=== PATIENT | female | born 1945 | race Caucasian/White ===

== ENCOUNTER → 2018-06-21 12:06 | Outpatient (CLI) | payer MEDICARE, SELFPAY ==
[2018-06-21 12:23] LABS: Basophils % 0.6 % (0.1-2.0); Eosinophils # 0.1 K/mm3 (0.0-0.4); Eosinophils % 1.1 % (0.1-12.0); Hematocrit 44.4 % (37.0-47.0); Hemoglobin 14.2 g/dL (12.2-16.2); Lymphocytes # 1.8 K/mm3 (0.7-4.5); Lymphocytes % 24.1 % (10-50); Mean Corpuscular HGB Conc 31.9 g/dL (31.8-35.4); Mean Corpuscular Volume 87.9 fl (81-99); Mean Platelet Volume 8.3 fl (7.4-10.4); Monocytes # 0.5 K/mm3 (0.1-1.0); Monocytes % 6.3 % (1.7-9.3); Neutrophils # 5.2 K/mm3 (1.8-7.8); Neutrophils % 67.8 % (37.0-80.0); Platelet Count 222 K/mm3 (142-424); Red Blood Count 5.05 M/mm3 (4.20-5.40); Red Cell Distribution Width 13.8 % (11.5-17.5); White Blood Count 7.6 K/mm3 (4.8-10.8)
--- NOTE | 2018-06-21 12:23 | XR_ITS ---
XR chest 2V HISTORY: Dyspnea on exertion, congestion ITS.REASON: ROCA ORDERING PHYSICIAN: Patricio Jones MD PATIENT AGE: 72 years COMPARISON: None FINDINGS: Unremarkable cardiovascular structures. There are no previous exams available for comparison. There is some patchy density noted in the right mid and lower lung zone and could be related to either scarring, infiltrate, or atelectasis. The remaining lungs are clear. There are degenerative changes in the thoracic spine. IMPRESSION: Nonspecific patchy density in the right mid and lower lung zone which could be related to fibrosis, atelectasis, or infiltrate or combination there. Consider follow-up to confirm stability or resolution
[2018-06-21 13:32] LABS: Hemoglobin A1C 6.1 % (0.0-7.0)
[2018-06-21 14:13] LABS: Alanine Aminotransferase 40 U/L (12-78); Albumin Level 3.7 gm/dL (3.4-5.0); Albumin/Globulin Ratio 0.9 (1.1-1.8); Alkaline Phosphatase 83 U/L (46-116); Anion Gap 14.2 mEq/L (5-15); Aspartate Amino Transferase 19 U/L (15-37); Bilirubin,Total 0.5 mg/dL (0.2-1.0); Blood Urea Nitrogen 20 mg/dL (7-18); Calcium 9.3 mg/dL (8.5-10.1); Carbon Dioxide 27 mmol/L (21.0-32.0); Chloride 104 mmol/L (98-107); Chol/HDL Ratio 2.8 (1-3.5); Cholesterol 165 mg/dL (140-200); Creatinine,Serum 0.64 mg/dL (0.55-1.02); Estimated Glomerular Filt Rate 91 ml/min (>60); GFR (African American) 110 ML/MIN (>60); Globulin 3.9 gm/dl (1.3-3.2); Glucose 100 mg/dL (74-106); HDL Cholesterol 58 mg/dL (29-89); LDL Cholesterol 92 mg/dL (0-130); Potassium 4.2 mmoL/L (3.5-5.1); Sodium 141 mmol/L (136-145); Total Protein,Serum 7.6 gm/dL (6.4-8.2); Triglycerides 76 mg/dL (30-200); VLDL Cholesterol 15 mg/dL (0-40)
[2018-06-23 17:09] LABS: Angiotensin Converting Enzyme 15 U/L (14-82)
== END ==
PROVIDERS: PCP Internal Medicine Adolescent Medicine; Visit Provider Internal Medicine Adolescent Medicine
DX: Z00.00 Encounter for general adult medical examination without abnormal findings (principal); R06.09 Other forms of dyspnea; J06.9 Acute upper respiratory infection, unspecified; Z79.899 Other long term (current) drug therapy
CPT/HCPCS: 36415; 71046; 80053; 80061; 82164; 83036; 85025

== ENCOUNTER → 2018-06-26 12:33 | Outpatient (CLI) | payer MEDICARE, SELFPAY | PROVIDERS: PCP Internal Medicine Adolescent Medicine; Visit Provider Internal Medicine Adolescent Medicine | DX: R06.09 Other forms of dyspnea (principal) | CPT/HCPCS: 94060; 94726; 94729 ==

== ENCOUNTER → 2021-04-24 18:02 | Outpatient (CLI) | payer MEDICARE, SELFPAY ==
[2021-04-24 19:19] LABS: Basophils # 0.1 K/mm3 (0-0.2); Basophils % 0.6 % (0.1-2.0); Eosinophils # 0.3 K/mm3 (0.0-0.4); Eosinophils % 2.7 % (0.1-12.0); Hematocrit 41.6 % (37.0-47.0); Hemoglobin 13.6 g/dL (12.2-16.2); Mean Corpuscular HGB Conc 32.7 g/dL (31.8-35.4); Mean Corpuscular Hemoglobin 28.5 pg (27.0-31.2); Mean Corpuscular Volume 87.3 fl (81-99); Mean Platelet Volume 9.7 fl (7.4-10.4); Monocytes # 0.8 K/mm3 (0.1-1.0); Monocytes % 6.5 % (1.7-9.3); Neutrophils # 8.7 K/mm3 (1.8-7.8); Neutrophils % 73.1 % (37.0-80.0); Platelet Count 249 K/mm3 (142-424); Red Blood Count 4.77 M/mm3 (4.20-5.40); Red Cell Distribution Width 13.7 % (11.5-17.5); White Blood Count 11.9 K/mm3 (4.8-10.8)
[2021-04-24 19:28] LABS: Hemoglobin A1C 5.8 % (4.0-6.0)
[2021-04-24 19:29] LABS: Alanine Aminotransferase 22 U/L (12-78); Albumin Level 3.9 g/dl (3.5-5.0); Albumin/Globulin Ratio 1.3 (1.1-1.8); Alkaline Phosphatase 105 U/L (38-126); Anion Gap 12.9 mEq/L (5-15); Aspartate Amino Transferase 29 U/L (14-36); Bilirubin,Total 0.4 mg/dl (0.2-1.3); Blood Urea Nitrogen 22 mg/dl (7-17); Calcium 9.3 mg/dl (8.4-10.2); Carbon Dioxide 27 mmol/L (22.0-30.0); Chloride 103 mmol/L (98-107); Chol/HDL Ratio 2.9 (1-3.5); Cholesterol 163 mg/dl (140-200); Estimated Glomerular Filt Rate 120 ml/min (>60); GFR (African American) 145 ML/MIN (>60); Globulin 2.9 g/dL (1.3-3.2); Glucose 93 mg/dl (74-100); HDL Cholesterol 56 mg/dl (40-60); Potassium 3.9 mmoL/L (3.5-5.1); Sodium 139 mmol/L (136-145); Total Protein,Serum 6.8 g/dl (6.3-8.2); Triglycerides 105 mg/dl (30-150); VLDL Cholesterol 21 mg/dL (0-40)
[2021-04-24 19:40] LABS: C-Reactive Protein 9.4 mg/L (0-4); Direct LDL Cholesterol 86.43 mg/dL (100-129)
[2021-04-24 19:47] LABS: T4 (Thyroxine) 10.3 ug/dl (5.53-11.0)
[2021-04-24 19:58] LABS: 25-OH Vitamin D, Total 18.7 ng/mL (30-100)
[2021-04-24 20:00] LABS: Thyroid Stimulating Hormone 1.35 uIU/mL (0.465-4.68)
[2021-04-24 20:11] LABS: Erythrocyte Sedimentation Rate 16 mm/hr (0-30)
[2021-04-26 09:09] LABS: RA Latex Turbid. <10.0 IU/mL (<14.0)
[2021-04-27 02:10] LABS: Anti-Centromere B Antibodies <0.2 AI (0.0-0.9); Anti-DNA (DS) Ab Qn <1 IU/mL (0-9); Anti-Jo-1 <0.2 AI (0.0-0.9); Anti-Smith Antibody <0.2 AI (0.0-0.9); Antichromatin Antibodies <0.2 AI (0.0-0.9); Antiscleroderma-70 Antibodies <0.2 AI (0.0-0.9); RNP Antibodies <0.2 AI (0.0-0.9); Sjogren's Anti-SS-A <0.2 AI (0.0-0.9); Sjogren's Anti-SS-B <0.2 AI (0.0-0.9)
[2021-04-29] LABS: Anti-Cyclic Citrullinated Pept 5 units (0-19)
== END ==
PROVIDERS: Nurse Practitioner Family; Visit Provider Nurse Practitioner Family
DX: M25.50 Pain in unspecified joint (principal); R53.83 Other fatigue; R60.9 Edema, unspecified; Z00.00 Encounter for general adult medical examination without abnormal findings; E55.9 Vitamin D deficiency, unspecified; Z79.899 Other long term (current) drug therapy
CPT/HCPCS: 80053; 80061; 82306; 83036; 84436; 84443; 85025; 85651; 86140; 86200; 86225; 86235; 86431

== ENCOUNTER → 2021-05-06 08:38 | Outpatient (CLI) | payer MEDICARE, SELFPAY | PROVIDERS: PCP Nurse Practitioner Family; Visit Provider Nurse Practitioner Family | DX: M79.18 Myalgia, other site (principal) ==

== ENCOUNTER 2021-06-01 10:00 | Outpatient (RCR) | payer MEDICARE, SELFPAY | END 2021-06-01 10:05 | disposition home or self-care (01) | LOC: PT 10:00 | PROVIDERS: PCP Nurse Practitioner Family; Visit Provider Nurse Practitioner Family | DX: M25.551 Pain in right hip (principal) | CPT/HCPCS: 97110; 97163; 97535 ==

== ENCOUNTER 2025-01-12 10:47 | Emergency (ER) | payer MEDICARE, SELFPAY ==
[2025-01-12] VITALS (22 sets, daily range): BP systolic 142–222; BP diastolic 68–111; PULSE 67–101; RESP 12–33; TEMP 36.8; O2SAT 92–98; BMI 42.9
--- NOTE | 2025-01-12 11:01 | ECG_ITS ---
APPROVED REPORT Exam: Resting ECG HR:96 bpm ECG Measurements Heart Rate 96 AXES MO 191 P 48 QRSd 144 QRS -49 QT 376 T 59 QTc 429 Conclusion Normal sinus rhythm Left axis Right bundle branch block No STEMI Electronically signed by : Waldo Corrigan, 01/12/2025 17:32:29
--- NOTE | 2025-01-12 11:19 | XR_ITS ---
PROCEDURE INFORMATION: Exam: XR Chest Exam date and time: 01/12/2025 11:35 AM Age: 79 years old Clinical indication: Shortness of breath and other: Eval for edema TECHNIQUE: Imaging protocol: Radiologic exam of the chest. Views: 1 view. COMPARISON: DX CXR2V XR chest 2V 06/21/2018 12:24 PM FINDINGS: Lungs: Opacities in both bases may represent atelectasis or pneumonia.. Pleural spaces: Mild to moderate left pleural effusion.. Heart/Mediastinum: Cardiomegaly and mild vascular prominence may represent interstitial edema.. Bones/joints: Stable IMPRESSION: 1. Opacities in both bases may represent atelectasis or pneumonia.. 2. Cardiomegaly and mild vascular prominence may represent interstitial edema.. 3. Mild to moderate left pleural effusion..
--- NOTE | 2025-01-12 11:30 | HMH.EDGENADL ---
Discharge Plan Disposition Patient Disposition: Home, Self-Care Condition: Good Prescriptions Prescriptions: No Action prednisone 20 mg tablet 20 mg PO BID 5 Days Qty: 10 0RF montelukast [Singulair] 10 mg tablet 10 mg PO DAILY Qty: 30 2RF fluticasone propionate [Flonase Allergy Relief] 50 mcg/actuation spray,suspension 1 spray INTRANASAL DAILY Qty: 16 2RF Rx Instructions: administer into each nostril loratadine [Allergy Relief (loratadine)] 10 mg tablet 10 mg PO DAILY Qty: 30 2RF tramadol 100 mg tablet 100 mg PO TID PRN (Reason: pain) Qty: 14 0RF Referrals Follow up/Referrals: Michelle Patterson APRN [Primary Care Provider, Medical] - See instructions Activity Restrictions/Add. Instructions Additional Instructions/Restrictions: Please expect a call from Urology on Tuesday or of this upcoming week. They will schedule an appointment to follow up in the outpatient clinic. Regarding your blood pressure, please keep a pressure log at home and follow up with your primary care doctor to discuss medication options moving forward. Clinical Impressions Clinical Impression: Light headedness, Generalized weakness, Kidney lesion Print Language Print Language: Romansh Discharge ED Provider: Waldo Corrigan Adult HPI General Chief complaint: Weakness Stated complaint: weak, dizzy, not able to think right Time Seen by Provider: 01/12/25 11:08 Mode of Arrival: Wheelchair Source of Information: Patient and Relative Description of Symptoms (Recalled from ER Triage Doc. by RN): Reports increased weakness and dizziness that started this morning. Patient denies N/V/D or any pain at this time. History of Present Illness HPI narrative: This is an 79-year-old female patient, with no prior documented medical history, who is presented to the emergency department today for evaluation of multiple complaints. The patient states that she has not seen a doctor in numerous years and does not currently carry any medical diagnoses. She tells me that she has been seen in the past for stable pulmonary nodules but she is unable to characterize these further. The reason she is presenting today is because she woke up feeling generally unwell and weaker than usual. She states that when she was standing up out of bed this morning she was having transient lightheadedness that was quickly resolving, however throughout the morning hours every time she would stand up this lightheadedness was longer and longer lasting. She states that she has not had any cough, congestion, production of phlegm. No chest pain or shortness of breath. No abdominal pain. No nausea, vomiting, or diarrhea. She denies urinary symptoms. She is difficult to get a history from aside from the fact that she is feeling overall weak. Related Data Previous Rx's ?Medication ?Instructions ?Recorded fluticasone propionate 50 1 spray intranasal DAILY #16 grams 04/24/21 mcg/actuation nasal spray,suspension (Flonase Allergy Relief) loratadine 10 mg tablet (Allergy 10 mg PO DAILY #30 tabs 04/24/21 Relief (loratadine)) montelukast 10 mg tablet 10 mg PO DAILY #30 tabs 04/24/21 (Singulair) prednisone 20 mg tablet 20 mg PO BID 5 days #10 tabs 04/24/21 tramadol 100 mg tablet 100 mg PO TID PRN pain #14 tabs 05/14/21 Allergies Allergy/AdvReac Type Severity Reaction Status Date / Time No Known Allergies Allergy Verified 04/24/21 13:28 [facility] Disclaimer: The information contained in this section may have been updated after the patient was seen, as this information can be updated by other users. Social History Smoking Status: Never smoker alcohol intake: never substance use type: denies use current occupational status: retired Travel in the last 8 weeks?: None housing: house Have you lived/traveled outside US in past 30 days?: No Contact w/someone who lives/traveled outside US past 30 days?: No Exposure to someone with infectious disease in past 14 days?: No Do you have a fever (greater than 100.4 F or 38 C)?: No Have you tested positive for COVID-19?: No Exposed to someone with COVID-19 in past 14 days?: No Do you have a sore throat?: No Do you have a cough?: No Do you have any weakness?: No Do you have any diarrhea?: No Are you experiencing any unusual bleeding?: No Do you have any muscle aches/pain?: No Do you have any abdominal pain?: No Are you experiencing loss of taste or smell?: No Other Medical History Have you received the Pneumonia Vaccine: Yes ROS Obtained: Yes Systems reviewed as appropriate & no additional complaints except as documented Physical Exam General General appearance: other (See MDM) Respiratory Respiratory exam: Present other (See MDM) Cardiovascular Cardiovascular exam: Present other (See MDM) Neurological Exam Neurological exam: Present other (See MDM) Medical Decision Making Medical Records Medical records reviewed: Yes I reviewed the patient's medical records. Screening: Per USPSTF and CDC recommendations, given the prevalence of disease in our region, it is our hospital?s policy to screen for HIV and viral Hepatitis for all patients aged 18 and over and those with ongoing risk factors. Blas Inquiry Pt receiving controlled substance: No Blas was queried for this patient: No Vital Signs: 01/12/25 11:00 01/12/25 11:04 01/12/25 11:04 Temperature 98.2 F Temperature Source Oral Pulse Rate 96 H 101 H Pulse Rate [Orthostatic Lying] Pulse Rate [Orthostatic Sitting] Pulse Rate [Orthostatic Standing] Pulse Rate [Radial] 99 H Respiratory Rate 26 H 18 22 Blood Pressure 198/69 H 190/68 H Blood Pressure [Orthostatic Lying] Blood Pressure [Orthostatic Sitting] Blood Pressure [Orthostatic Standing] Blood Pressure [Right Arm] 198/69 H Blood Pressure Mean Blood Pressure Mean [Right Arm] 112 Blood Pressure Source [Right Arm] Automatic Cuff Blood Pressure Position [Right Arm] Sitting 02 Sat by Pulse Oximetry 95 95 97 Oxygen Delivery Method Room Air 01/12/25 11:19 01/12/25 11:22 01/12/25 12:00 Temperature Temperature Source Pulse Rate 94 H 92 H Pulse Rate [Orthostatic Lying] 94 H Pulse Rate [Orthostatic Sitting] 94 H Pulse Rate [Orthostatic Standing] 100 H Pulse Rate [Radial] Respiratory Rate 25 H 26 H Blood Pressure 183/90 H 186/82 H Blood Pressure [Orthostatic Lying] 183/90 H Blood Pressure [Orthostatic Sitting] 203/90 H Blood Pressure [Orthostatic Standing] 222/111 H Blood Pressure [Right Arm] Blood Pressure Mean Blood Pressure Mean [Right Arm] Blood Pressure Source [Right Arm] Blood Pressure Position [Right Arm] 02 Sat by Pulse Oximetry 95 93 L Oxygen Delivery Method 01/12/25 12:12 01/12/25 12:25 01/12/25 12:30 Temperature Temperature Source Pulse Rate 92 H 94 H 93 H Pulse Rate [Orthostatic Lying] Pulse Rate [Orthostatic Sitting] Pulse Rate [Orthostatic Standing] Pulse Rate [Radial] Respiratory Rate 23 15 26 H Blood Pressure 183/82 H 210/100 H 174/94 H Blood Pressure [Orthostatic Lying] Blood Pressure [Orthostatic Sitting] Blood Pressure [Orthostatic Standing] Blood Pressure [Right Arm] Blood Pressure Mean Blood Pressure Mean [Right Arm] Blood Pressure Source [Right Arm] Blood Pressure Position [Right Arm] 02 Sat by Pulse Oximetry 93 L 93 L 95 Oxygen Delivery Method 01/12/25 12:45 01/12/25 13:00 01/12/25 13:31 Temperature Temperature Source Pulse Rate 92 H 80 85 Pulse Rate [Orthostatic Lying] Pulse Rate [Orthostatic Sitting] Pulse Rate [Orthostatic Standing] Pulse Rate [Radial] Respiratory Rate 27 H 20 28 H Blood Pressure 181/90 H 192/105 H 192/103 H Blood Pressure [Orthostatic Lying] Blood Pressure [Orthostatic Sitting] Blood Pressure [Orthostatic Standing] Blood Pressure [Right Arm] Blood Pressure Mean Blood Pressure Mean [Right Arm] Blood Pressure Source [Right Arm] Blood Pressure Position [Right Arm] 02 Sat by Pulse Oximetry 94 L 94 L 95 Oxygen Delivery Method 01/12/25 13:46 01/12/25 14:00 01/12/25 14:15 Temperature Temperature Source Pulse Rate 72 72 71 Pulse Rate [Orthostatic Lying] Pulse Rate [Orthostatic Sitting] Pulse Rate [Orthostatic Standing] Pulse Rate [Radial] Respiratory Rate 23 22 22 Blood Pressure 180/89 H 176/89 H 172/86 H Blood Pressure [Orthostatic Lying] Blood Pressure [Orthostatic Sitting] Blood Pressure [Orthostatic Standing] Blood Pressure [Right Arm] Blood Pressure Mean 118 114 Blood Pressure Mean [Right Arm] Blood Pressure Source [Right Arm] Blood Pressure Position [Right Arm] 02 Sat by Pulse Oximetry 98 96 96 Oxygen Delivery Method 01/12/25 14:30 01/12/25 14:50 01/12/25 15:00 Temperature Temperature Source Pulse Rate 67 75 Pulse Rate [Orthostatic Lying] Pulse Rate [Orthostatic Sitting] Pulse Rate [Orthostatic Standing] Pulse Rate [Radial] Respiratory Rate 22 33 H 24 Blood Pressure 161/82 H 188/95 H 169/84 H Blood Pressure [Orthostatic Lying] Blood Pressure [Orthostatic Sitting] Blood Pressure [Orthostatic Standing] Blood Pressure [Right Arm] Blood Pressure Mean 108 Blood Pressure Mean [Right Arm] Blood Pressure Source [Right Arm] Blood Pressure Position [Right Arm] 02 Sat by Pulse Oximetry 95 92 L Oxygen Delivery Method 01/12/25 15:16 01/12/25 15:30 Temperature Temperature Source Pulse Rate 67 71 Pulse Rate [Orthostatic Lying] Pulse Rate [Orthostatic Sitting] Pulse Rate [Orthostatic Standing] Pulse Rate [Radial] Respiratory Rate 18 14 Blood Pressure 151/80 H 142/71 H Blood Pressure [Orthostatic Lying] Blood Pressure [Orthostatic Sitting] Blood Pressure [Orthostatic Standing] Blood Pressure [Right Arm] Blood Pressure Mean Blood Pressure Mean [Right Arm] Blood Pressure Source [Right Arm] Blood Pressure Position [Right Arm] 02 Sat by Pulse Oximetry 93 L 92 L Oxygen Delivery Method Lab Data Lab Results 01/12/25 10:54: Urine Color Yellow, Urine Appearance Clear, Urine pH 7.5, Ur Specific [place] 1.020, Urine Protein Negative, Urine Glucose (UA) Negative, Urine Ketones Negative, Urine Blood 1+ A, Urine Nitrate Negative, Urine Bilirubin Negative, Urine Urobilinogen 1.0, Ur Leukocyte Esterase Negative, Urine RBC 5-10, Urine WBC Occasional, Ur Squamous Epith Cells Occasional, Urine Bacteria None 01/12/25 11:45: WBC 10.0, RBC 5.29, Hgb 15.1, Hct 46.8, MCV 88.5, MCH 28.5, MCHC 32.3, RDW 13.5, Plt Count 227, MPV 10.2, Neut % (Auto) 82.2 H, Lymph % (Auto) 9.1 L, Mcd[place] % (Auto) 6.6, Eos % (Auto) 1.0, Baso % (Auto) 0.5, Neut # (Auto) 8.2 H, Lymph # (Auto) 0.9, [place]cd[place] # (Auto) 0.7, Eos # (Auto) 0.1, Baso # (Auto) 0.1, Sodium 139, Potassium 4.3, Chloride 110 H, Carbon Dioxide 23, Anion Gap 10.3, BUN 18 H, Creatinine 0.50 L, Estimated Creat Clear 38, Estimated GFR 118, Est GFR ( Amer) 143, Glucose 143 H, Calcium 9.4, Total Bilirubin 1.0, AST 35, ALT 21, Alkaline Phosphatase 118, Total Creatine Kinase 190 H, Troponin I < 0.01, NT-Pro-B Natriuret Pep 210, Total Protein 7.7, Albumin 4.5, Globulin 3.2, Albumin/Globulin Ratio 1.4, Lipase 86, HCV Ab KEENAN w/Rflx PCR Qn Negative, HIV Ag/Ab Combo Qual Negative 01/12/25 11:45 01/12/25 11:45 Orders (Tests/Meds): ED MEDICATIONS Discontinued Medications Generic Name Dose Route Start Last Admin Trade Name Freq PRN Reason Stop Dose Admin Carvedilol 25 mg 01/12/25 13:31 01/12/25 13:56 Carvedilol 25mg Tablet PO 01/12/25 13:32 25 mg ONCE ONE Administration Iopamidol 80 ml 01/12/25 13:32 01/12/25 13:33 Iopamidol-370 (76%);100ml Bottle IV 01/12/25 13:33 80 ml ONCE ONE Administration Iopamidol 75 ml 01/12/25 15:42 01/12/25 15:42 Iopamidol-370 (76%);100ml Bottle IV 01/12/25 15:43 75 ml ONCE ONE Administration Sodium Chloride 10 ml 01/12/25 13:32 01/12/25 13:33 Sodium Chloride 0.9% 10ml Syr (Rad Only) IV 01/12/25 13:33 10 ml ONCE ONE Administration Sodium Chloride 50 ml 01/12/25 13:32 01/12/25 13:33 0.9 % Sodium Chloride 50 Ml Vial IV 01/12/25 13:33 50 ml ONCE ONE Administration Sodium Chloride 10 ml 01/12/25 15:42 01/12/25 15:42 Sodium Chloride 0.9% 10ml Syr (Rad Only) IV 01/12/25 15:43 10 ml ONCE ONE Administration ORDERS Category Date Time Status CT abdomen pelvis w con Stat Cat Scan 01/12/25 14:[address] angio chest PE protocol Stat Cat Scan 01/12/25 13:10 Completed CXR --portable [XR chest portable] Stat Exams 01/12/25 11:19 Completed POCUS Point of Care (ER Only) Stat Exams 01/12/25 11:40 Completed BNP [NT Pro Brain Natriuretic Pep.] Stat Lab 01/12/25 11:45 Completed CBC w/Auto Diff [Complete Blood Count Auto Diff] Stat Lab 01/12/25 11:45 Completed CK [Creatine Kinase] Stat Lab 01/12/25 11:45 Completed CMP [Comprehensive Metabolic Panel] Stat Lab 01/12/25 11:45 Completed HIV Combo Stat Lab 01/12/25 11:45 Completed Hepatitis C Ab Qual. W/ RFX Stat Lab 01/12/25 11:45 Completed Lipase Stat Lab 01/12/25 11:45 Completed Troponin I Q3H Lab 01/12/25 14:30 Ordered Troponin I Q3H Lab 01/12/25 17:30 Ordered Troponin I Stat Lab 01/12/25 11:45 Completed Urinalysis and Microscopic Stat Lab 01/12/25 10:54 Completed ECG Data Tracing #1: I reviewed this ECG and interpreted as documented below: EKG personally interpreted by me demonstrates normal sinus rhythm with a rate of 96 bpm, left axis, no MD prolongation, wide QRS with right bundle branch block morphology, no QTc prolongation. No ST elevation or depression. No overt signs of ischemia or arrhythmia. Medical Decision Narrative: In summary, this is an 79-year-old female patient who is presented to the emergency department today for evaluation of weakness and lightheadedness with standing onset this morning. The patient does not have any significant comorbidities that would complicate her medical management or care, however she is also not seen a physician in numerous years so she likely does have some undiagnosed comorbidities. On initial evaluation the patient she was nontoxic and in no acute distress. She was hemodynamically stable but significantly hypertensive with a systolic blood pressure of 190 and a diastolic greater than 105. She had a normal heart rate of around 90. She is overall neurologically intact and appropriately conversational with a GCS of 15. Heart and lungs are clear to auscultation bilaterally. She has no abdominal tenderness to palpation. She does have significant bilateral lower extremity pitting edema. Differential diagnosis includes ACS/AZ, anemia, congestive heart failure, rhabdomyolysis, urinary tract infection, pulmonary embolism, among others. Workup was initiated with a hematologic labs and urinalysis as well as an EKG and a chest x-ray. Labs were personally turbid by me and demonstrate no evidence of leukocytosis, no actionable anemia, no significant electrolyte derangement or evidence of acute kidney injury. BNP is 210 and troponin is less than 0.01. In the absence of chest pain I do not feel that she needs a second troponin at this time. Additionally, with her BNP being low I do not feel that this is consistent with overt heart failure. Urine studies demonstrate no evidence of urinary tract infection. We did obtain orthostatic vitals on the patient given that she was reporting lightheadedness with standing. She had no evidence of orthostasis and actually had an increase in her blood pressure with standing. Given that her pressure has been sustained greater than 190 systolic and her heart rate is in the 90s, I did administer 25 mg of carvedilol to see if this would improve her symptoms and her blood pressure. Chest x-ray was personally interpreted by me and demonstrates opacities in the bilateral lower lobes which I feel are very nonspecific. She is not having any symptoms that would be consistent with pneumonia. Given the appearance of this I did perform a bedside echo which showed a preserved ejection fraction. I did not appreciate any pleural effusions or evidence of pulmonary edema overtly. I did decide to proceed with a CT pulmonary embolism study to ensure that she did not have a pulmonary embolism and to also better characterize her lungs. CT PE was personally interpreted by me and demonstrates no evidence of saddle pulmonary embolus. Official radiology read is in agreement and states that there is no abnormalities in the lungs and no evidence of pulmonary emboli however, they did note that there is multiple healing rib fractures in addition to a 3.6 cm mass in the posterior aspect of the kidney concerning for renal cell carcinoma. I did discuss this case with urology at the [facility]. They state that this is something that they would recommend outpatient follow-up on. They have requested that we obtain a CT scan of the abdomen and pelvis with IV contrast to expedite her workup in the outpatient setting. CT scan of the abdomen and pelvis was obtained and demonstrated a 4.6 x 3.6 mass in the posterior right kidney with a calcified periphery, which again is concerning for renal cell carcinoma. Aside from this there is no obvious metastasis noted on the CT read interpretation. I have informed the patient of all of her findings and our plan moving forward. Urology will be in contact with the patient on Tuesday or Tuesday of this upcoming week to schedule follow-up in their clinic. Regarding the patient's lightheadedness and weakness, per symptoms have resolved since arrival to the emergency department. I have asked her to follow-up with her primary care physician regarding her blood pressure. In the meantime I have asked that she keep a blood pressure log. At this time all questions have been answered and all parties are agreeable with the decision to discharge home Critical Care Critical Care Time Critical Care Time: No
[2025-01-12 12:06] LABS: Hematocrit 46.8 % (37.0-47.0); Hemoglobin 15.1 g/dL (12.2-16.2); Immature Granulocytes % 0.6 %; Mean Corpuscular HGB Conc 32.3 g/dL (31.8-35.4); Mean Corpuscular Hemoglobin 28.5 pg (27.0-31.2); Mean Corpuscular Volume 88.5 fl (81-99); Nucleated Red Blood Cells % 0 %; Platelet Count 227 K/mm3 (142-424); Red Blood Count 5.29 M/mm3 (4.20-5.40); Red Cell Distribution Width-SD 43.9 fL; White Blood Count 10.0 K/mm3 (4.8-10.8)
[2025-01-12 12:08] LABS: Albumin Level 4.5 g/dl (3.5-5.0); Chloride 110 mmol/L (98-107)
[2025-01-12 12:09] LABS: Potassium 4.3 mmoL/L (3.5-5.1); Sodium 139 mmol/L (136-145)
[2025-01-12 12:11] LABS: Alanine Aminotransferase 21 U/L (12-78); Anion Gap 10.3 mEq/L (5-15); Aspartate Amino Transferase 35 U/L (14-36); Blood Urea Nitrogen 18 mg/dl (7-17); Carbon Dioxide 23 mmol/L (22.0-30.0); Creatinine Clearance Estimated 38 mL/min (50-200); Creatinine,Serum 0.50 mg/dl (0.52-1.04); Estimated Glomerular Filt Rate 118 ml/min (>60); GFR (African American) 143 ML/MIN (>60)
[2025-01-12 12:12] LABS: Albumin/Globulin Ratio 1.4 (1.1-1.8); Alkaline Phosphatase 118 U/L (38-126); Bilirubin,Total 1.0 mg/dl (0.2-1.3); Calcium 9.4 mg/dl (8.4-10.2); Creatine Kinase 190 U/L (30-135); Globulin 3.2 g/dL (1.3-3.2); Glucose 143 mg/dl (74-100); Lipase 86 U/L (23-300); Total Protein,Serum 7.7 g/dl (6.3-8.2)
[2025-01-12 12:21] LABS: Microscopic, Urine URINE MICROSCOPIC (MICROSCOPIC)
[2025-01-12 12:21] LABS: NT Pro Brain Natriuretic Pep. 210 pg/mL (0-450)
[2025-01-12 12:27] LABS: Bilirubin,Urine Negative (Negative); Color,Urine YELLOW (Yellow); Glucose,Urine (UA) Negative (Negative); Ketones,Urine Negative (Negative); Leukocyte Esterase,Urine Negative (Negative); PH,Urine 7.5 (5.0-8.5); Protein,Urine Negative (Negative); Specific Gravity, Urine 1.020 (1.005-1.030); Urobilinogen,Urine 1.0 EU/dl (0.2)
[2025-01-12 12:28] LABS: Troponin I < 0.01 ng/ml (0.00-0.034)
[2025-01-12 12:36] LABS: Squamous Epithelial Cell,Urine Occasional #/hpf (0-5); WBC,Urine Occasional #/hpf (0-3)
--- NOTE | 2025-01-12 13:10 | CT_ITS ---
PROCEDURE INFORMATION: Exam: CTA Chest With Contrast Exam date and time: 01/12/2025 1:25 PM Age: 79 years old Clinical indication: Shortness of breath; Additional info: Dyspnea TECHNIQUE: Imaging protocol: Computed tomographic angiography of the chest with contrast. Exam focused on the arteries. 3D rendering (Not supervised by radiologist): MIP and/or 3D reconstructed images were created by the technologist. Radiation optimization: All CT scans at this facility use at least one of these dose optimization techniques: automated exposure control; mA and/or kV adjustment per patient size (includes targeted exams where dose is matched to clinical indication); or iterative reconstruction. Contrast material: ISOVUE; Contrast volume: 80 ml; Contrast route: INTRAVENOUS (IV); COMPARISON: CR XR CHEST PORTABLE 01/12/2025 11:35 AM FINDINGS: Pulmonary arteries: Normal. No pulmonary emboli. Aorta: Unremarkable. No aortic aneurysm. No aortic dissection. Lungs: 7.8 pulmonary nodule in the right middle lobe series 5, image 56. . 7.2 mm pulmonary nodule right lower lobe series 5, image 63 Pleural spaces: Unremarkable. No pneumothorax. No pleural effusion. Heart: There is calcification of the aortic valve annulus. There is calcification of the mitral valve annulus. Coronary arteries: Coronary artery calcifications may indicate coronary artery disease. Lymph nodes: Unremarkable. No enlarged lymph nodes. Kidneys: 3.6 cm mass in the posterior aspect of the right kidney 61 Hounsfield units. It has a calcified border. (series 5, image 125 -133). . Bones/joints: Healing left anterior 5 6 7th and 8th rib fractures. Soft tissues: Unremarkable. Other findings: Multiple calcified granulomas consistent with prior granulomatous disease. IMPRESSION: 1. Healing left anterior 5 6 7th and 8th rib fractures. 2. 7.8 pulmonary nodule in the right middle lobe series 5, image 56. For patients at low risk (minimal or absent history of smoking and of other known risk factors), recommend CT Chest at 6-12 months, then consider CT Chest at 18-24 months. For patients at high risk (history of smoking or of other known risk factors), recommend CT Chest at 6-12 months, then [address] Chest at 18-24 months. (Reference: Danilo) References: Danilo Mcgregor et al. Guidelines for Management of Incidental Pulmonary Nodules Detected on CT Images: From the Fleischner Society 2017. Radiology. 2017;284(1):228-243. 3. 3.6 cm mass in the posterior aspect of the right kidney 61 Hounsfield units. It has a calcified border. (series 5, image 125 -133). . COMMENTS: Consistent with the [employer] [place]'s Incidental Findings Committee white paper (J Am Armando Radiol 2018): Any incidental renal lesion less than 1 cm or classified as too small to characterize, or any incidental cystic renal lesion characterized as simple-appearing, is likely benign. No follow-up imaging is recommended for these lesions per consensus recommendations based on imaging criteria. THIS REPORT CONTAINS FINDINGS THAT MAY BE CRITICAL TO PATIENT CARE. The findings were verbally communicated via telephone conference with ANDREW PATEL at 1:55 PM EDT on 01/12/2025. The findings were acknowledged and understood.
[2025-01-12 13:14] LABS: Hepatitis C Ab Qual. W/ RFX NEGATIVE (Negative)
[2025-01-12] MEDS: SODIUM CHLORIDE 0.9% 10ML SYR (RAD ONLY) 10 ML IV ×2 (13:33→15:42)
[2025-01-12] MEDS: 0.9 % SODIUM CHLORIDE 50 ML VIAL IV (13:33)
[2025-01-12] MEDS: IOPAMIDOL-370 (76%);100ML BOTTLE 80 ML IV (13:33)
[2025-01-12] MEDS: CARVEDILOL 25MG TABLET 25 MG PO (13:56)
--- NOTE | 2025-01-12 14:01 | PC.NURSE ---
[facility] called for a consult and possible transfer
--- NOTE | 2025-01-12 14:49 | CT_ITS ---
PROCEDURE INFORMATION: Exam: CT Abdomen And Pelvis With Contrast Exam date and time: 01/12/2025 3:42 PM Age: 79 years old Clinical indication: Screening exam; Other: Eval for mets TECHNIQUE: Imaging protocol: Computed tomography of the abdomen and pelvis with contrast. Radiation optimization: All CT scans at this facility use at least one of these dose optimization techniques: automated exposure control; mA and/or kV adjustment per patient size (includes targeted exams where dose is matched to clinical indication); or iterative reconstruction. Contrast material: ISOVUE; Contrast volume: 75 ml; Contrast route: IV; COMPARISON: CT ANGIO CHEST PE PROTOCOL 01/12/2025 1:25 PM FINDINGS: Liver: Lobulated liver consistent with cirrhosis. Gallbladder and biliary ducts: Normal. No calcified stones. No ductal dilation. Pancreas: Normal. No ductal dilation. Spleen: Normal. No splenomegaly. Adrenal glands: Normal. No mass. Kidneys and ureters: 4.6 x 3.6 cm mass posterior right kidney. It has a calcified periphery.. Stomach and bowel: Unremarkable. No obstruction. No mucosal thickening. Appendix: Normal appendix Intraperitoneal space: Unremarkable. No free air. No significant fluid collection. Vasculature: Unremarkable. No abdominal aortic aneurysm. Lymph nodes: Unremarkable. No enlarged lymph nodes. Urinary bladder: Unremarkable as visualized. Reproductive: Unremarkable as visualized. Bones/joints: Anterolisthesis of L3 with respect L4 and L4 with respect to L5. No acute fracture. Soft tissues: Unremarkable. IMPRESSION: 1. Lobulated liver consistent with cirrhosis. 2. 4.6 x 3.6 cm mass posterior right kidney. It has a calcified periphery.. Recommend urology consult to evaluate for renal cell carcinoma COMMENTS: Consistent with the [employer]'s Incidental Findings Committee white paper (J Am Armando Radiol 2018): Any incidental renal lesion less than 1 cm or classified as too small to characterize, or any incidental cystic renal lesion characterized as simple-appearing, is likely benign. No follow-up imaging is recommended for these lesions per consensus recommendations based on imaging criteria.
[2025-01-12] MEDS: IOPAMIDOL-370 (76%);100ML BOTTLE 75 ML IV (15:42)
== END 2025-01-12 16:51 | disposition home or self-care (01) ==
PROVIDERS: Emergency Provider Student in an Organized Health Care Education/Training Program; PCP Nurse Practitioner Family
DX: N28.9 Disorder of kidney and ureter, unspecified (principal)
CPT/HCPCS: 71045; 71275; 74177; 80053; 81001; 82550; 83690; 83880; 84484; 85025; 86803; 87389; 93005; 99284; 99285; Q9967

== ENCOUNTER 2025-02-26 14:48 | Outpatient (CLI) | payer MEDICARE, SELFPAY ==
--- OUTSIDE RECORDS SUMMARY | 2025-02-26 14:57 | XMS_ITS | Encounter Summary ---
Author Organization Healthcare Address [address] [place] [address] Care Team Providers Care Stained Glass Glazier Name Role Phone Pcp, No Primary Care Provider Unavailabl e Encounter Details Date Type Department Care Team (Late Contact Info) Description 01/12/2025 Orders Only External Location [address] [place] [address] Waldo Corrigan, DO [address] [place], [place] [id number] Social History Tobacco Use Types Packs/Day Years Used Date Smoking Tobacco: Never Assessed Comments Unknown Sex and Gender Information Value Date Recorded Sex Assigned at Not on file Legal Sex Female 2:00 PM EDT Gender Identity Not on file Sexual Orientation Not on file documented as of this encounter Plan of Treatment Upcoming Encounters Date Type Department Care Team (Late st Contact Info) Description 03/07/2025 9:00 AM EDT Appointment [facility] [address] [place] [address] 03/07/2025 10:30 AM EDT Office Visit Medical Office Building Urology [address] [facility], [address] [place] [address] Madhav Diaz MD [address] [place] [address] documented as of this encounter Procedures Procedure Name Priority Date/Time Associated Diagnosis Comments CT OUTSIDE IMAGES 01/12/2025 3:42 PM EDT documented in this encounter Results * CT OUTSIDE IMAGES (01/12/2025 3:42 PM EDT) Anatomical Region Laterality Modality Computed Tomogra phy 01/12/2025 3:42 PM EDT us Waldo Corrigan DO IMG CT PROCEDURES Edited Res ult - Final documented in this encounter Visit Diagnoses Not on filedocumented in this encounter Care Teams Stained Glass Glazier Relationship Specialty Start Date End Date Pcp, [place] [address] PCP - General Family Medicine 01/16/25 documented as of this encounter
--- OUTSIDE RECORDS SUMMARY | 2025-02-26 14:57 | XMS_ITS | Encounter Summary ---
Author Organization Healthcare Address [address] [place] [address] Care Team Providers Care Truck Loader And Unloader Name Role Phone Pcp, No Primary Care Provider Unavailabl e Encounter Details Date Type Department Care Team (Late Contact Info) Description 01/12/2025 Orders Only External Location [address] [place] [address] Waldo Corrigan, DO [address] [place], [place] [id number] Social History Tobacco Use Types Packs/Day Years [...] Info) Description 03/07/2025 9:00 AM EDT Appointment [facility] [address] [place] [address] 03/07/2025 10:30 AM EDT Office Visit Medical Office Building Urology [address] [facility], [address] [place] [address] Madhav Diaz MD [address] [place] [address] documented as of this encounter Procedures Procedure Name Priority Date/Time Associated Diagnosis Comments CT OUTSIDE IMAGES 01/12/2025 1:25 PM EDT documented in this encounter Results * CT OUTSIDE IMAGES (01/12/2025 1:25 PM EDT) Anatomical Region Laterality Modality Computed Tomogra phy 01/12/2025 1:25 PM EDT us Waldo Corrigan DO IMG CT PROCEDURES Edited Res ult - Final documented in this encounter Visit Diagnoses Not on filedocumented in this encounter Care Teams Truck Loader And Unloader Relationship Specialty Start Date End Date Pcp, [place] [address] PCP - General Family Medicine 01/16/25 documented as of this encounter
--- OUTSIDE RECORDS SUMMARY | 2025-02-26 14:57 | XMS_ITS | Encounter Summary ---
Author Organization Healthcare Address [address] [place] [address] Care Team Providers Care Line Assembler Aircraft Name Role Phone Pcp, No Primary Care Provider Unavailabl e Encounter Details Date Type Department Care Team (Late Contact Info) Description 01/12/2025 Orders Only External Location [address] [place] [address] Waldo Corrigan, DO [address] [place], [place] [id number] Social History Tobacco Use Types Packs/Day Years [...] Info) Description 03/07/2025 9:00 AM EDT Appointment [facility] [address] [place] [address] 03/07/2025 10:30 AM EDT Office Visit Medical Office Building Urology [address] [facility], [address] [place] [address] Madhav Diaz MD [address] [place] [address] documented as of this encounter [...] on filedocumented in this encounter Care Teams Line Assembler Aircraft Relationship Specialty Start Date End Date Pcp, [place] [address] PCP - General Family Medicine 01/16/25 documented as of this encounter
--- OUTSIDE RECORDS SUMMARY | 2025-02-26 14:57 | XMS_ITS | Encounter Summary ---
Author Organization Healthcare Address [address] [place] [address] Care Team Providers Care Mechanical Expert Name Role Phone Pcp, No Primary Care Provider Unavailabl e Reason for Referral * Imaging (Routine) - Authorized Specialty Diagnoses / Procedures Referred By Contac t Referred To Contact Radiology Diagnoses Renal mass Procedures CT Renal Mass w and wo IV Contrast Janet Groves DO [address] [address] Phone: tel: fax: Referral ID Status Reason Start Date Expiration Date V isits Requested Visits Authorized [id number] Authorized 01/13/2025 07/15/2026 1 1 Encounter Details Date Type Department Care Team (Late Contact Info) Description 01/13/2025 Orders Only [facility] Urology [address], [address] [place] [address] Janet Groves DO [address] [address] Renal mass (Primary Dx) Social History Tobacco Use Types Packs/Day Years Used Date Smoking Tobacco: Never Assessed Comments Unknown Sex and Gender Information Value Date Recorded Sex Assigned at Not on file Legal Sex Female 2:00 PM EDT Gender Identity Not on file Sexual Orientation Not on file documented as of this encounter Plan of Treatment Upcoming Encounters Date Type Department Care Team (Late Contact Info) Description 03/07/2025 9:00 AM EDT Appointment [facility] [address] [place] [address] 03/07/2025 10:30 AM EDT Office Visit Medical Office Building Urology [address] [facility], [address] [place] [address] Madhav Diaz MD [address] [place] [address] Scheduled Orders Name Type Priority Associated Diagnoses Orde r Schedule CT Renal Mass w and wo IV Contrast Imaging Routine Renal mass Expected: 01/27/2025 (Approximate), Expires: 07/17/2026 documented as of this encounter Visit Diagnoses Diagnosis Renal mass- Primary Unspecified disorder of kidney and ureter documented in this encounter Care Teams Mechanical Expert Relationship Specialty Start Date End Date Pcp, Camila [address] [place] [address] PCP - General Family Medicine 01/16/25 documented as of this encounter
--- OUTSIDE RECORDS SUMMARY | 2025-02-26 14:57 | XMS_ITS | Clinical Summary ---
Author Organization Healthcare Address [address] [place] [address] Care Team Providers Care Mixer And Blender Name Role Phone Pcp, No Primary Care Provider Unavailabl e Encounters Date Type Department Care Team Description 01/13/2025 Orders Only [facility] Urology [address] [place] [address] Janet Groves, Renal mass (Primary Dx) 01/12/2025 Orders Only External Location [address] [place] [address] Waldo Corrigan, 01/12/2025 Orders Only External Location [address] [place] [phone] Waldo Corrigan, 01/12/2025 Orders Only External Location [address] [place] [address] Waldo Corrigan, 01/12/2025 Orders Only External Location [address] [place] [phone] Waldo Corrigan, from Last 3 Months Social History Tobacco Use Types Packs/Day Years Used Date Smoking Tobacco: Never Assessed Comments Unknown Sex and Gender Information Value Date Recorded Sex Assigned at Not on file Legal Sex Female 2:00 PM EDT Gender Identity Not on file Sexual Orientation Not on file Plan of Treatment Upcoming Encounters Date Type Department Care Team (Late st Contact Info) Description 03/07/2025 9:00 AM EDT Appointment [facility] CT [address] [place] [address] 03/07/2025 10:30 AM EDT Office Visit Medical Office Building Urology [address] [facility], [address] [place] [address] Madhav Diaz MD [address] [place] [address] Health Maintenance Due Date Last Done Comments [facility]-Bone Density Scan 1945 [facility]-Depression Screening 1945 [facility]-Medicare Annual Wellness (AWV) 1945 [facility]-Infant/Child/Adol SDOH Screenings 1945 [facility]- SDOH Screenings 10/05/1961 [facility]-Adult SDOH Screenings 10/05/1961 [facility]-DTaP,Tdap,and Td Vaccine s (1 - Tdap) 10/05/1962 [facility]-Zoster Vaccines (1 of 2) 10/05/1993 [facility]-RSV Vaccine: 60+ Years o r (1 - 1-dose 75+ series) 10/05/2018 [facility]-Pneumococcal Vaccine: 50 + Years (2 of 2 - PCV) 06/21/2019 06/21/2018 [id number] Vaccine (1 - 20 24-25 season) 2025 [facility]-Influenza Vaccine (#1) 2025 HPV Vaccines Aged Out No longer eligi ble based on patient's age to complete this topic [facility]-HIB Vaccines Aged Out No longer e ligible based on patient's age to complete this topic [facility]-Hepatitis A Vaccines Aged Out No longer eligible based on patient's age to complete this topic [facility]-IPV Vaccines Aged Out No longer e ligible based on patient's age to complete this topic [facility]-Rotavirus Vaccines Aged Out No lo nger eligible based on patient's age to complete this topic Procedures Procedure Name Priority Date/Time Associated Diagnosis Comments CT OUTSIDE IMAGES 01/12/2025 3:[address] OUTSIDE IMAGES 01/12/2025 1:[address] OUTSIDE IMAGES 01/12/2025 1:25 PM EDT US OUTSIDE IMAGES 01/12/2025 12:23 PM EDT from Last 3 Months Results * CT OUTSIDE IMAGES (01/12/2025 3:42 PM EDT) Only the most recent of3 resultswithin the time period is included. Anatomical Region Laterality Modality Computed Tomogra phy 01/12/2025 3:42 PM EDT us Waldo Corrigan DO IMG CT PROCEDURES Edited Res ult - Final * US OUTSIDE IMAGES (01/12/2025 12:23 PM EDT) Anatomical Region Laterality Modality Ultrasound 01/12/2025 12:2 3 PM EDT us Waldo Corrigan DO IMG US PROCEDURES Edited Res ult - Final from Last 3 Months Insurance MEDICARE Care Teams Mixer And Blender Relationship Specialty Start Date [place] [address] PCP - General Family Medicine 01/16/25
--- OUTSIDE RECORDS SUMMARY | 2025-02-26 14:57 | XMS_ITS | Encounter Summary ---
Author Organization Healthcare Address [address] [place] [address] Care Team Providers Care Financial Administrator Name Role Phone Pcp, No Primary Care Provider Unavailabl e Encounter Details Date Type Department Care Team (Late Contact Info) Description 01/12/2025 Orders Only External Location [address] [place] [address] Waldo Corrigan, DO [address] [place], [place] [phone] Social History Tobacco Use Types Packs/Day Years [...] Info) Description 03/07/2025 9:00 AM EDT Appointment [facility] [address] [place] [address] 03/07/2025 10:30 AM EDT Office Visit Medical Office Building Urology [address] [facility], [address] [place] [address] Madhav Diaz MD [address] [place] [address] documented as of this encounter Procedures Procedure Name Priority Date/Time Associated Diagnosis Comments US OUTSIDE IMAGES 01/12/2025 12:23 PM EDT documented in this encounter Results * US OUTSIDE IMAGES (01/12/2025 12:23 PM EDT) Anatomical Region Laterality Modality Ultrasound 01/12/2025 12:2 3 PM EDT us Waldo Corrigan DO IMG US PROCEDURES Edited Res ult - Final documented in this encounter Visit Diagnoses Not on filedocumented in this encounter Care Teams Financial Administrator Relationship Specialty Start Date End Date Pcp, No [address] [place] [address] PCP - General Family Medicine 01/16/25 documented as of this encounter
--- NOTE | 2025-02-26 15:15 | CA_ITS ---
APPROVED REPORT EXAM: Comprehensive 2D, Doppler, and color-flow Echocardiogram Shovel Engineer: Jazmyne Herman CRT Ht: 5 ft 4 in Wt: 234lbs BSA: 2.09 BP: 172/70 mmHg Indications: dizzy, murmur, cold clammy spells M-Mode Dimensions RVDd 3.57 cm (0.9-2.6) LA Diam 3.86 cm (1.9-4.0) LVDd 3.83 cm (3.5-5.7) LVDs 2.85 cm (3.5-5.7) IVSd 1.25 cm (0.6-1.1) PWd 2.18 cm (0.6-1.1) EF (Teich) 51.00% FS 25.60% EDV (Teich) 63.10 mL ESV (Teich) 30.90 mL LV Diastology E Decel Time 170 (160-240 msec) E/A Ratio 0.5 MED A' 15.50 cm/s LAT A' 20.50 cm/s Aortic Valve AO Peak GR. 12.20 mmHg Mitral Valve MV E Max Hector. 53.0 (40-130 cm/s) MV A Velocity 105.0 (40-130 cm/s) E/A Ratio 0.51 MV PHT 50.0 ms Pulmonary Valve PV Peak Velocity 86.0 (50-150 cm/s) Tricuspid Valve TR P. Velocity 184.00 cm/s RAP Estimate 10.00 mmHg RVSP 23.60 mmHg Left Ventricle The left ventricle is normal size. Left ventricular systolic function is normal. The left ventricular ejection fraction is within the normal range. There is increased indeterminate. Left ventricular wall thickness. There is normal LV segmental wall motion. The left ventricular diastolic function is normal. LVEF is 55% Right Ventricle The right ventricle is not well-visualized, grossly appears mildly dilated with normal RV function. Atria The left atrium size is normal. The right atrium size is normal. There is no color Doppler evidence of interatrial shunt. Aortic Valve The aortic valve is mildly thickened. There is no hemodynamically significant aortic valvular stenosis. Mild aortic regurgitation is present. Mitral Valve The mitral valve is normal in structure. No evidence of mitral valve stenosis. Trace mitral regurgitation is present. Tricuspid Valve The tricuspid valve leaflets are thin and pliable. Trace tricuspid regurgitation. There is insufficient TR jet to estimate RVSP. Pulmonic Valve The pulmonary valve is grossly normal in structure. Mild pulmonic valve regurgitation is present. Great Vessels The aortic root is normal in size. IVC is normal in size and collapses >50% with inspiration. Pericardium There is no pericardial effusion. Other Information Study Quality: Technically Difficult Conclusion Technically difficult study. Normal biventricular systolic function. Mild RV dilation. Mild AI, mild PI. Electronically signed by : Renea Enrique MD 02/27/2025 14:56:42
== END 2025-02-26 23:59 | disposition home or self-care (01) ==
LOC: RT 14:49
PROVIDERS: PCP Student in an Organized Health Care Education/Training Program; Visit Provider Student in an Organized Health Care Education/Training Program
DX: I08.8 Other rheumatic multiple valve diseases (principal); R42 Dizziness and giddiness; R23.1 Pallor
CPT/HCPCS: 93306

== ENCOUNTER 2025-04-18 09:44 | Outpatient (CLI) | payer MEDICARE, SELFPAY ==
[2025-04-18 21:09] LABS: Chloride 103 mmol/L (98-107); Potassium 4.1 mmoL/L (3.5-5.1); Sodium 143 mmol/L (136-145)
[2025-04-18 21:12] LABS: Anion Gap 19.1 mEq/L (5-15); Blood Urea Nitrogen 13 mg/dl (7-17); Calcium 8.8 mg/dl (8.4-10.2); Carbon Dioxide 25 mmol/L (22.0-30.0); Creatinine,Serum 0.50 mg/dl (0.52-1.04); Estimated Glomerular Filt Rate 118 ml/min (>60); GFR (African American) 143 ML/MIN (>60); Glucose 100 mg/dl (74-100)
== END 2025-04-18 23:59 | disposition home or self-care (01) ==
LOC: LAB.DROPOF 04-19 12:34
PROVIDERS: PCP Student in an Organized Health Care Education/Training Program; Visit Provider Student in an Organized Health Care Education/Training Program
DX: I15.8 Other secondary hypertension (principal)
CPT/HCPCS: 80048